=== PATIENT | female | born 1945 | race Caucasian/White ===

== ENCOUNTER → 2018-03-30 | Outpatient (CLI) | payer MEDICARE ==
[~2018-03-30] MED LIST: ADULT LOW DOSE81 MG PO; LOPRESSOR25 PO; PROZAC 20 MG20 M1
== END ==
LOC: M.ULTRA 03-25 14:00 → M.RAD 03-25 14:00 → M.ULTRA 10:30
DX: N64.4 Mastodynia (principal); R20.8 Other disturbances of skin sensation; I10 Essential (primary) hypertension; I25.10 Atherosclerotic heart disease of native coronary artery without angina pectoris; E78.5 Hyperlipidemia, unspecified

== ENCOUNTER → 2020-05-08 | Outpatient (CLI) | payer MEDICARE | LOC: M.ULTRA 05-04 16:50 | PROVIDERS: ATTEND Family Medicine | DX: J98.4 Other disorders of lung (principal); J47.9 Bronchiectasis, uncomplicated ==

== ENCOUNTER 2021-03-11 17:40 | Emergency (ER) | payer MEDICARE ==
[~2021-03-11] VITALS: Ht 167.6 cm; Wt 63.5 kg
[2021-03-11 20:04] VITALS: BP 129/76
== END 2021-03-11 20:04 | disposition home or self-care (01) ==
LOC: M.ERS 17:40
DX: R60.0 Localized edema (principal); Z90.710 Acquired absence of both cervix and uterus; Z79.82 Long term (current) use of aspirin

== ENCOUNTER → 2021-09-11 | Outpatient (CLI) | payer MEDICARE | LOC: M.CT 11:12 | PROVIDERS: ATTEND Family Medicine | DX: Z12.2 Encounter for screening for malignant neoplasm of respiratory organs (principal); J98.4 Other disorders of lung; Z87.891 Personal history of nicotine dependence ==